=== PATIENT | male | born 1995 | race Caucasian/White ===

== ENCOUNTER 2017-01-18 14:49 | Emergency (ER) | payer OTHER ==
--- NOTE | 2017-01-18 15:01 | EDPHY ---
H & P Stated Complaint: L leg redness infection x 5 days--on bactrim Time Seen by Provider: 01/18/17 14:57 - Personal History Current Tetanus/Diphtheria Vaccine: Yes Current Tetanus Diphtheria and Acellular Pertussis (TDAP): Yes - Medical/Surgical History Hx Asthma: Yes Hx Chronic Respiratory Disease: No Hx Diabetes: No Hx Cardiac Disease: No Hx Renal Disease: No Hx Cirrhosis: No Hx Alcoholism: No Hx HIV/AIDS: No Hx Splenectomy or Spleen Trauma: No Other PMH: asthma - Social History Smoking Status: Never smoked Constitutional: Initial Vital Signs Temperature (C) 36.9 C 01/18/17 14:52 Heart Rate 83 01/18/17 14:52 Respiratory Rate 16 01/18/17 14:52 Blood Pressure 127/78 H 01/18/17 14:52 O2 Sat (%) 98 01/18/17 14:52 O2 Delivery Mode Room Air Allergies/Adverse Reactions: No Known Allergies Allergy (Unverified 01/18/17 14:51) Home Medications: Medication Instructions Recorded Bactrim DS 01/18/17 Medical Decision Making ED Course/Re-evaluation: CHIEF COMPLAINT: Leg abscess HISTORY OF PRESENT ILLNESS: 21-year-old healthy and immunocompetent gentleman who potentially had a bug bite a several days ago in his left lower leg. His father is a physician and a colleague of his father called in Bactrim which he has been on for a couple of days. Initially looked like it was improving however the abscess worsened both in size, redness, pressure and pain. He also felt some fevers and chills a couple days ago but that resolved. He denies any specific injury. He thinks it might have been a bug bite since he was out hiking but is unclear. REVIEW OF SYSTEMS: A 10 point review of systems was performed and is negative with the exception of the elements mentioned in the history of present illness. PHYSICAL EXAM: HR, BP, O2 Sat, RR. Temp noted General Appearance: Alert, well hydrated, appropriate, and non-toxic appearing. Head: Atraumatic Musculoskeletal: Normal active ROM of all extremities, atraumatic. Neurological: Alert, appropriate, and interactive. Skin: Abscess left anterior lateral lower leg. No lymphangitis. Significant surrounding cellulitis. Otherwise, No rashes, good turgor, no nodules on palpation. Past medical history: Noncontributory immunocompetent Past surgical history: Noncontributory Family history: Noncontributory Social history: Single, employed, does not abuse tobacco drugs or alcohol DIFFERENTIAL DIAGNOSIS: Includes but is not limited to abscess, cellulitis, lymphangitis, adenitis MEDICAL DECISION MAKING: Procedure: Abscess drainage. The patient's abscess was located on the left lower leg lateral anterior. I obtained verbal consent from the patient to drain the abscess who was informed about the possibility of bleeding and pain. The abscess was incised with a 11. Blade and a significant amount of purulent drainage was expressed. I irrigated the wound and placed some packing. The patient tolerated the procedure well. The procedure was performed by myself. This patient is ready on Bactrim. I will add Keflex for strep coverage although I believe this most likely staff. His father is a physician and will check this and 1 to take days so there is no reason for him to return unless there is an issue. Departure - Departure Disposition: Home, Routine, Self-Care Clinical Impression: Cutaneous abscess of left lower extremity Condition: Good Instructions: Abscess (ED), Abscess Follow-up (ED) Additional Instructions: Have your father checked the wound in 24 and 48 hours. The packing can be replaced or just removed if the wound is doing well. If he develops any significant fevers chills or reaccumulation of the abscess return immediately. Referrals: Edmundo Palacios MD [Primary Care Provider] - As per Instructions
[2017-01-18] MEDS ORDERED: CEPHALEXIN 500 MG CAP PO ONE (15:37)
[2017-01-18 15:45] VITALS: BP 125/68; PULSE 82; RESP 18; TEMP 98.2; O2SAT 96
== END 2017-01-18 15:50 | disposition home or self-care (01) ==
PROC: 0H9LXZZ Drainage of Left Lower Leg Skin, External Approach (ICD-10-PCS; principal; 2017-01-18)
DX: L02.416 Cutaneous abscess of left lower limb (principal); J45.909 Unspecified asthma, uncomplicated